=== PATIENT | female | born 1980 | race Two or more races ===

== ENCOUNTER 2018-09-02 21:48 | Emergency (ER) | payer MEDICAID, OTHER ==
[~2018-09-02] VITALS: Ht 167.6 cm; Wt 68.0 kg
[2018-09-02] MEDS ORDERED: MORPHINE SULFATE 4 MG/ML SYR/VIAL IV ONE (22:00)
[2018-09-02] MEDS ORDERED: ONDANSETRON HCL 4 MG/2 ML VIAL IV ONE ×2 (22:00→23:30)
[2018-09-02] MEDS ORDERED: HYDROmorphone HCL 2 MG/ML VL IV ONE (23:30)
[2018-09-03 02:32] VITALS: BP 104/62
== END 2018-09-03 03:27 | disposition home or self-care (01) ==
LOC: EDBD 21:48 → ER 21:56
DX: S32.029A Unspecified fracture of second lumbar vertebra, initial encounter for closed fracture (principal); Z91.81 History of falling; W18.2XXA Fall in (into) shower or empty bathtub, initial encounter; Y93.89 Activity, other specified; Y92.89 Other specified places as the place of occurrence of the external cause; Y99.8 Other external cause status
CPT/HCPCS: 72125; 72128; 72131; 74176; 96374; 96375; 96376; 99284; J1170; J2270; J2405